=== PATIENT | female | born 1970 | race Asian ===

== ENCOUNTER → 2024-09-18 | Outpatient (CLI) | payer SELFPAY ==
--- NOTE | 2024-09-18 07:44 | EKG12_ITS ---
Test Reason : SOB Blood Pressure : */* mmHG Vent. Rate : 71 BPM Atrial Rate : 71 BPM P-R Int : 134 ms QRS Dur : 90 ms QT Int : 352 ms P-R-T Axes : 63 64 31 degrees QTcB Int : 382 ms Normal sinus rhythm Normal ECG Confirmed by DEDRA GIL, TOSHA ([id number]), catalogue clerk RODRICK OLIVER ([id number]) on 09/21/2024 8:54:16 AM Referred By: Morgan Hardin Confirmed By: TOSHA COLMENARES MD
== END | disposition home or self-care (01) ==
DX: R06.09 Other forms of dyspnea (principal)
CPT/HCPCS: 93005